=== PATIENT | female | born 1970 | race Caucasian/White ===

== ENCOUNTER 2020-01-13 20:35 | Observation (INO) ==
[2020-01-13 21:09] LABS: Basophils % 0.2 % (0.0-0.8); Eosinophils # 0.1 10*3/uL (0.0-0.87); Eosinophils % 0.5 % (0.00-10.9); Hemoglobin 11.6 GM/DL (12.0-16.0); Immature Granulocytes % 0.3 %; Immature Granulocytes Absolute 0.05 #; Lymphocytes # 1.5 10*3/uL (1.4-4.0); Lymphocytes % 8.4 % (21.3-54.2); Mean Corpuscular HGB Conc 32.2 GM/DL (32-36); Mean Corpuscular Volume 82.8 FL (87-102); Mean Platelet Volume 9.9 FL (9.6-12.0); Monocytes % 4.8 % (1.7-12.7); Neutrophils % 85.8 % (38.7-73.9); Platelet Count 325 T/CUMM (130-400); Red Blood Count 4.35 MC/CUMM (3.8-5.5); Red Cell Distribution Width 14.8 % (9.3-17.3); White Blood Count 18.2 T/CUMM (4-12)
[2020-01-13] MEDS ORDERED: MORPHINE 4 MG/1 ML VIAL IV ONE (21:20)
[2020-01-13] MEDS ORDERED: ONDANSETRON 4 MG/2 ML VIAL IV ONE (21:20)
[2020-01-13] MEDS ORDERED: SODIUM CHLORIDE 0.9% 1,000 ML IV STA (21:20)
[2020-01-13 21:25] LABS: PT Patient Result 10.9 SECS (9.8-11.9); Partial Thromboplastin Time 29.2 SECS (23.9-33.8)
[2020-01-13 21:27] LABS: Alanine Aminotransferase 26 U/L (13-56); Albumin 4.1 G/DL (3.4-5.0); Alkaline Phosphatase 74 U/L (45-117); Aspartate Amino Transferase 17 U/L (0-37); Bilirubin,Total < 0.39 MG/DL (0.2-1.0); Blood Urea Nitrogen 12 MG/DL (7-18); Calcium 8.9 MG/DL (8.5-10.1); Estimated Glom Filtration Rate 68 ML/MIN; Glucose 96 MG/DL (74-106); Osmolality,Calculated 272.8 MOS/KG (273-304); Total Protein 8.5 G/DL (6.4-8.3)
[2020-01-13 22:15] LABS: Apearance,Urine CLEAR (Clear); Bacteria,Urine Occasional /HPF (Few); Bilirubin,Urine Negative (Negative); Blood, Urine Negative (Negative); Glucose,Urine (UA) Negative (Negative); Ketones,Urine Negative (Negative); Mucus,Urine Occasional /LPF (Occasional); Nitrite,Urine Negative (Negative); Protein,Urine Negative; RBC,Urine 1 /HPF (0-4); Squamous Epithelial Cell,Urine Occasional /HPF (0-10); Urine Color Yellow (Yellow); Urine Specific Gravity 1.013 (1.001-1.035); Urine Urobilinogen < 2.0 EU/DL (0.2-1.0); WBC,Urine 5 /HPF (0-6)
[2020-01-13] MEDS ORDERED: HYDROmorphone 2 MG/1 ML VIAL IV STA (22:25)
[2020-01-13] MEDS ORDERED: LEVOFLOXACIN INJ 750 MG in PREMIX 1 EACH IV STA (22:26)
[2020-01-13] MEDS ORDERED: metroNIDAZOLE INJ 500 MG in PREMIX 1 EACH IV STA (22:26)
[2020-01-13] MEDS ORDERED: PROMETHAZINE 25 MG/1 ML VIAL IM PRN (22:28)
[2020-01-13] MEDS ORDERED: HYDROmorphone 2 MG/1 ML VIAL IV PRN (22:28)
[2020-01-13] MEDS ORDERED: ONDANSETRON 4 MG/2 ML VIAL IV PRN (22:28)
[2020-01-13] MEDS ORDERED: ACETAMINOPHEN 325 MG TABLET PO PRN (22:28)
[2020-01-14] MEDS: LACTATED RINGERS 1,000 ML IV SCH ×3 (00:42→16:20)
[2020-01-14] MEDS: LEVOFLOXACIN INJ 750 MG in PREMIX 1 EACH IV SCH (00:43)
[2020-01-14 05:58] LABS: Basophils % 0.1 % (0.0-0.8); Eosinophils % 0.1 % (0.00-10.9); Hematocrit 31.1 VOL% (35.7-47.0); Hemoglobin 10.1 GM/DL (12.0-16.0); Immature Granulocytes % 0.4 %; Immature Granulocytes Absolute 0.07 #; Lymphocytes # 1.4 10*3/uL (1.4-4.0); Mean Corpuscular HGB Conc 32.5 GM/DL (32-36); Mean Corpuscular Volume 82.9 FL (87-102); Mean Platelet Volume 10.3 FL (9.6-12.0); Monocytes % 4.9 % (1.7-12.7); Neutrophils % 85.5 % (38.7-73.9); Red Blood Count 3.75 MC/CUMM (3.8-5.5); Red Cell Distribution Width 14.8 % (9.3-17.3); White Blood Count 15.7 T/CUMM (4-12)
[2020-01-14 06:01] LABS: Platelet Count 226 T/CUMM (130-400)
[2020-01-14 06:08] LABS: Albumin 3.3 G/DL (3.4-5.0); Bilirubin,Total 0.4 MG/DL (0.2-1.0); Calcium 8.3 MG/DL (8.5-10.1); Osmolality,Calculated 273.7 MOS/KG (273-304); Total Protein 7.2 G/DL (6.4-8.3)
[2020-01-14] MEDS: metroNIDAZOLE INJ 500 MG in PREMIX 1 EACH IV SCH ×3 (07:06→23:06)
[2020-01-14] MEDS ORDERED: BUPIVACAINE 0.5% 50 ML VIAL ONE (09:39)
[2020-01-14] MEDS ORDERED: TISSUE ADHESIVE 1 EACH APPLICATOR TOP ONE (09:39)
[2020-01-14] MEDS ORDERED: LIDOCAINE 1%/EPI INJ 20 ML VIAL ONE (09:39)
[2020-01-14] MEDS: PANTOPRAZOLE 40 MG TABLET PO SCH (10:00)
[2020-01-14] MEDS ORDERED: propofoL 200 MG/20 ML VIAL IV ONE (11:18)
[2020-01-14] MEDS ORDERED: ONDANSETRON 4 MG/2 ML VIAL ONE (11:19)
[2020-01-14] MEDS ORDERED: DEXAMETHASONE 4 MG/1 ML VIAL ONE (11:19)
[2020-01-14] MEDS ORDERED: fentaNYL 100 MCG/2 ML VIAL ONE (11:19)
[2020-01-14] MEDS ORDERED: LIDOCAINE 2% 5 ML VIAL ONE (11:19)
[2020-01-14] MEDS ORDERED: SEVOFLURANE 1 UNIT/15 MINUTE INH ONE (11:19)
[2020-01-14] MEDS ORDERED: MIDAZOLAM 2 MG/2 ML VIAL ONE (11:19)
[2020-01-14] MEDS ORDERED: PROMETHAZINE 25 MG/1 ML VIAL ONE (11:19)
[2020-01-14] MEDS ORDERED: LACTATED RINGERS 1,000 ML IV ONE (11:20)
[2020-01-14] MEDS ORDERED: NEOSTIGMINE 10 MG/10 ML VIAL ONE (11:20)
[2020-01-14] MEDS ORDERED: SUCCINYLCHOLINE 200 MG/10 ML VIAL ONE (11:20)
[2020-01-14] MEDS ORDERED: ROCURONIUM 100 MG/10 ML VIAL IV ONE (11:20)
[2020-01-14] MEDS ORDERED: ACETAMINOPHEN 1,000 MG/100 ML VIAL IV ONE (11:20)
[2020-01-14] MEDS ORDERED: GLYCOPYRROLATE 0.4 MG/2 ML VIAL ONE (11:20)
[2020-01-14] MEDS ORDERED: PHENYLEPHRINE 1 MG/10 ML SYRINGE IV ONE (11:20)
[2020-01-15] MEDS: LEVOFLOXACIN INJ 750 MG in PREMIX 1 EACH IV SCH (00:36)
[2020-01-15] MEDS: LACTATED RINGERS 1,000 ML IV SCH (04:12)
[2020-01-15 06:29] LABS: Basophils % 0.1 % (0.0-0.8); Eosinophils % 0.1 % (0.00-10.9); Hematocrit 28.8 VOL% (35.7-47.0); Hemoglobin 9.3 GM/DL (12.0-16.0); Immature Granulocytes % 0.4 %; Immature Granulocytes Absolute 0.05 #; Lymphocytes # 1.2 10*3/uL (1.4-4.0); Lymphocytes % 9.8 % (21.3-54.2); Mean Corpuscular HGB Conc 32.3 GM/DL (32-36); Mean Corpuscular Volume 83.2 FL (87-102); Mean Platelet Volume 10.6 FL (9.6-12.0); Monocytes % 7.9 % (1.7-12.7); Neutrophils % 81.7 % (38.7-73.9); Platelet Count 211 T/CUMM (130-400); Red Blood Count 3.46 MC/CUMM (3.8-5.5); Red Cell Distribution Width 15.3 % (9.3-17.3); White Blood Count 12.2 T/CUMM (4-12)
[2020-01-15] MEDS: metroNIDAZOLE INJ 500 MG in PREMIX 1 EACH IV SCH (07:26)
[2020-01-15] MEDS: PANTOPRAZOLE 40 MG TABLET PO SCH (08:41)
[2020-01-15 11:14] VITALS: BP 106/64
== END 2020-01-15 13:20 | disposition home or self-care (01) ==
LOC: N.ED 20:35 → N.EDINP 20:35 → N.3E 23:08
PROVIDERS: ADMIT Surgery; ATTEND Surgery